=== PATIENT | female | born 1990 | race Hispanic/Latino ===

== ENCOUNTER 2022-06-05 09:07 | Day surgery (SDC) | payer MEDICAID, OTHER ==
[2022-06-05 09:35] VITALS: BMI 37.2
[2022-06-05] MEDS ORDERED: hydrALAZINE 20 MG/ML VIAL SLOW IVP PRN (09:57)
[2022-06-05] MEDS ORDERED: Lactated Ringer's 1,000 ML IV SCH (10:00)
[2022-06-05] MEDS ORDERED: Ondansetron PF 4 MG/2 ML Vial IVP SCH (10:00)
== END 2022-06-05 11:05 | disposition home or self-care (01) ==
LOC: CSHLD/OP 09:07
PROVIDERS: ATTEND Obstetrics & Gynecology
DX: O47.1 False labor at or after 37 completed weeks of gestation (principal); O24.419 Gestational diabetes mellitus in pregnancy, unspecified control; O21.2 Late vomiting of pregnancy; Z88.0 Allergy status to penicillin; Z3A.37 37 weeks gestation of pregnancy
CPT/HCPCS: 36416; 96360; 96375; 99283; J2405

== ENCOUNTER 2022-06-05 14:31 | Inpatient (IN) | payer MEDICAID, OTHER ==
[2022-06-05] MEDS ORDERED: Butorphanol Tartrate 1 MG/ML VIAL SLOW IVP PRN (14:42)
[2022-06-05] MEDS ORDERED: Docusate 100 MG CAP PO PRN (14:42)
[2022-06-05] MEDS ORDERED: Acetaminophen 500 MG TAB PO PRN (14:42)
[2022-06-05] MEDS ORDERED: hydrALAZINE 20 MG/ML VIAL SLOW IVP PRN (14:42)
[2022-06-05] MEDS ORDERED: Lidocaine 1% (PF) 30 ML VIAL SC PRN (14:42)
[2022-06-05] MEDS ORDERED: Ibuprofen 800 MG TAB PO PRN (14:42)
[2022-06-05] MEDS ORDERED: Diphenoxylate HCl/Atropine Tablet PO PRN ×2 (14:42)
[2022-06-05] MEDS ORDERED: Promethazine HCl 25 MG/ML VIAL IM PRN (14:42)
[2022-06-05] MEDS ORDERED: HYDROcodone/Acetaminophen 5/325 mg Tablet PO PRN ×2 (14:42)
[2022-06-05] MEDS ORDERED: Ondansetron PF 4 MG/2 ML Vial IVP PRN (14:42)
[2022-06-05] MEDS ORDERED: Zolpidem Tartrate 5 MG TAB PO PRN (14:42)
[2022-06-05] MEDS ORDERED: Misoprostol 200 MCG TAB PR PRN (14:42)
[2022-06-05] MEDS ORDERED: NS w/ Oxytocin 30 units 500 ML IV SCH (14:45)
[2022-06-05] MEDS ORDERED: Lactated Ringer's 1,000 ML IV SCH (14:45)
[2022-06-05 16:13] VITALS: BMI 38.2
[2022-06-05 17:06] LABS: Hemoglobin 9.4 g/dL (12.0-15.5); Mean Corpuscular HGB CONC 29.7 g/dL (32.0-36.0); Mean Corpuscular Hemoglobin 20.6 pg (27.0-33.0); Mean Corpuscular Volume 69.1 fl (81.6-98.3); Mean Platelet Volume 10.6 fl (7.4-10.4); Platelet Count 322 10x3/uL (150-450); RBC Distribution Width 22.7 % (11.5-14.5); Red Blood Cell (RBC) Count 4.57 10x6/uL (3.90-5.03); White Blood Cell (WBC) Count 10.8 10x3/uL (3.5-10.5)
[2022-06-05 17:36] LABS: Syphilis Antibody Nonreactive (Nonreactive); Syphilis Antibody Index 0.05 S/CO (<1.00 Non-Reactive)
[2022-06-05 17:38] LABS: HBSAg Index 0.15 S/CO (0-0.99); HIV (1/2) Antibody/Antigen Non-Reactive (NonReactive); HIV 1/2 INDEX 0.05 S/CO (<1.00); Hep B Surf Ag Non-Reactive S/CO (NonReactive)
[2022-06-05 17:43] LABS: SARS-CoV-2 NAA Rapid Test Not Detected (NotDetected)
[2022-06-06] MEDS ORDERED: Fentanyl 2 mcg/Bup 0.1% Cadd 100 ML ONE (04:01)
[2022-06-06] MEDS ORDERED: Moisturizing Cream (Eucerin) 113 GM JAR TOP PRN (04:57)
[2022-06-06] MEDS ORDERED: Promethazine HCl 25 MG/ML VIAL IM PRN (04:57)
[2022-06-06] MEDS ORDERED: Lactated Ringer's 500 ML IV PRN (04:57)
[2022-06-06] MEDS ORDERED: Acetaminophen 325 MG TAB PO PRN (04:57)
[2022-06-06] MEDS ORDERED: diphenhydrAMINE 50 MG/ML VIAL IVP PRN (04:57)
[2022-06-06] MEDS ORDERED: ePHEDrine Sulfate 50 MG/10 ML VIAL SLOW IVP PRN (04:57)
[2022-06-06] MEDS ORDERED: Naloxone HCl 0.4 mg/ml Vial IVP PRN ×2 (04:57)
[2022-06-06] MEDS ORDERED: Ondansetron PF 4 MG/2 ML Vial IVP PRN ×2 (04:57→15:22)
[2022-06-06] MEDS ORDERED: Communication Order-Pharmacy FS SCH (05:00)
[2022-06-06] MEDS: Fentanyl 2 mcg/Bupivacaine 0.1% Cassette 100 ML EPIDURAL SCH ×2 (11:02→14:55)
[2022-06-06] MEDS ORDERED: Methylergonovine 0.2 MG/ML VIAL ONE (12:59)
[2022-06-06] MEDS ORDERED: Carboprost 250 MCG/ML AMP ONE (13:00)
[2022-06-06] MEDS ORDERED: Lidocaine 2% PF 5 ML VIAL ONE (14:00)
[2022-06-06] MEDS ORDERED: Bupivacaine PF 0.5% 30 ML VIAL ONE (14:00)
[2022-06-06] MEDS ORDERED: Bupivacaine HCl 0.5%/Epinephrine 1:200,000/PF 30 ml Vial ONE (14:00)
[2022-06-06] MEDS ORDERED: ePHEDrine Sulfate 50 MG/10 ML VIAL ONE (14:00)
[2022-06-06] MEDS ORDERED: Preparation H Ointment 28 GM TUBE PR PRN (15:22)
[2022-06-06] MEDS ORDERED: Benzocaine-Menthol 82.5 ML CAN TOP PRN (15:22)
[2022-06-06] MEDS ORDERED: Misoprostol 200 MCG TAB VAG PRN (15:22)
[2022-06-06] MEDS ORDERED: Boostrix 0.5 ML (Tdap) VIAL (>/=7 yrs of age) IM ONE (15:22)
[2022-06-06] MEDS ORDERED: Lanolin Ointment 7 GM TUBE TOP PRN (15:22)
[2022-06-06] MEDS ORDERED: diphenhydrAMINE 25 MG CAP PO PRN (15:22)
[2022-06-06] MEDS ORDERED: Bisacodyl 10 MG SUPP PR PRN (15:22)
[2022-06-06] MEDS ORDERED: Milk Of Magnesia 30 ML UDCUP PO PRN (15:22)
[2022-06-06] MEDS ORDERED: hydrALAZINE 20 MG/ML VIAL SLOW IVP PRN (15:22)
[2022-06-06] MEDS ORDERED: NS w/ Oxytocin 30 units 500 ML IV SCH (15:30)
[2022-06-06] MEDS ORDERED: HYDROcodone/Acetaminophen 5/325 mg Tablet PO PRN (19:02)
[2022-06-06] MEDS ORDERED: Zolpidem Tartrate 5 MG TAB PO PRN (19:03)
[2022-06-06] MEDS: Docusate 100 MG CAP PO SCH (19:46)
[2022-06-06] MEDS: HYDROcodone/Acetaminophen 5/325 mg Tablet PO PRN (19:53)
[2022-06-06] MEDS: Ferrous Sulfate 325 MG TAB PO SCH (19:54)
[2022-06-06] MEDS ORDERED: Ibuprofen 800 MG TAB PO SCH (22:00)
[2022-06-07] MEDS: Ibuprofen 800 MG TAB PO SCH ×4 (01:41→22:21)
[2022-06-07] MEDS: HYDROcodone/Acetaminophen 5/325 mg Tablet PO PRN ×3 (04:47→14:36)
[2022-06-07 05:36] LABS: Mean Corpuscular HGB CONC 29.2 g/dL (32.0-36.0); Mean Corpuscular Hemoglobin 20.7 pg (27.0-33.0); Mean Platelet Volume 10.6 fl (7.4-10.4); Platelet Count 255 10x3/uL (150-450); RBC Distribution Width 23.4 % (11.5-14.5); Red Blood Cell (RBC) Count 3.86 10x6/uL (3.90-5.03); White Blood Cell (WBC) Count 13.1 10x3/uL (3.5-10.5)
[2022-06-07] MEDS: Prenatal Vitamin 1 TAB PO SCH (09:43)
[2022-06-07] MEDS: Ferrous Sulfate 325 MG TAB PO SCH ×2 (09:43→16:51)
[2022-06-07] MEDS: Docusate 100 MG CAP PO SCH ×2 (09:43→22:21)
[2022-06-07] MEDS ORDERED: Butorphanol Tartrate 1 MG/ML VIAL SLOW IVP SCH (22:15)
[2022-06-08] MEDS: Ibuprofen 800 MG TAB PO SCH ×2 (05:37→13:01)
[2022-06-08] MEDS: Docusate 100 MG CAP PO SCH (09:07)
[2022-06-08] MEDS: Ferrous Sulfate 325 MG TAB PO SCH (09:07)
[2022-06-08] MEDS: Prenatal Vitamin 1 TAB PO SCH (09:07)
[2022-06-08] MEDS: HYDROcodone/Acetaminophen 5/325 mg Tablet PO PRN ×2 (09:07→13:01)
[2022-06-08 12:35] VITALS: BP 109/58; TEMP 98.2
== END 2022-06-08 14:50 | disposition home or self-care (01) | DRG 806 ==
LOC: CSHLD/OP 14:31 → CSHLD 14:33 → CSHPP 06-06 18:08
PROVIDERS: ADMIT Obstetrics & Gynecology; ATTEND Obstetrics & Gynecology
PROC: 10E0XZZ Delivery of Products of Conception, External Approach (ICD-10-PCS; principal; 2022-06-06)
PROC: 10907ZC Drainage of Amniotic Fluid, Therapeutic from Products of Conception, Via Natural or Artificial Opening (ICD-10-PCS; 2022-06-06)
DX: O36.8130 Decreased fetal movements, third trimester, not applicable or unspecified (principal); O99.354 Diseases of the nervous system complicating childbirth; Z37.0 Single live birth; Z3A.37 37 weeks gestation of pregnancy; Z20.822 Contact with and (suspected) exposure to COVID-19; Z88.0 Allergy status to penicillin; Z88.5 Allergy status to narcotic agent; Z86.16 Personal history of COVID-19; O99.02 Anemia complicating childbirth; D64.9 Anemia, unspecified; G43.909 Migraine, unspecified, not intractable, without status migrainosus; F41.9 Anxiety disorder, unspecified; F32.A Depression, unspecified; Z90.49 Acquired absence of other specified parts of digestive tract; Z79.84 Long term (current) use of oral hypoglycemic drugs; Z79.899 Other long term (current) drug therapy; O99.344 Other mental disorders complicating childbirth
CPT/HCPCS: 36415; 51702; 85027; 86780; 86850; 86900; 86901; 87340; 87389; J0595; J2001; J2405; J2590; J3010; S0020; U0002

== ENCOUNTER 2022-06-12 22:05 | Emergency (ER) | payer MEDICAID ==
[2022-06-12] MEDS ORDERED: Acetaminophen 500 MG TAB ONE (22:24)
[2022-06-12 22:48] LABS: Bilirubin Neg (Negative); Blood, Urine 250 (Negative); Clarity Clear (Clear); Glucose, Urine (Dipstick) Normal (Negative); Ketone, Urine Negative (Negative); Leukocyte 500 (Negative); Nitrite Negative (Negative); Protein, Urine (Dipstick) Negative (Neg-Trace); Urobilinogen Normal mg/dL (Less than 2)
[2022-06-12 22:52] LABS: Bacteria/HPF 1+ HPF (None Seen); Mucous/LPF Few LPF (<2+)
[2022-06-12] MEDS ORDERED: diphenhydrAMINE 50 MG/ML VIAL ONE (23:38)
[2022-06-12 23:39] LABS: #Eosinphils 0.1 10x3/uL (0.0-0.5); #Monocytes 0.5 10x3/uL (0.0-1.1); #Neutrophils 8.9 10x3/uL (1.5-8.4); %Basophils 0.4 % (0.0-2.0); %Lymphocytes 13.6 % (18.0-47.0); %Monocytes 4.2 % (0.0-10.0); %Neutrophils 79.3 % (40.0-75.0); Hemoglobin 8.9 g/dL (12.0-15.5); Mean Corpuscular HGB CONC 30.4 g/dL (32.0-36.0); Mean Corpuscular Volume 72.3 fl (81.6-98.3); Mean Platelet Volume 9.9 fl (7.4-10.4); Platelet Count 433 10x3/uL (150-450); RBC Distribution Width 24.7 % (11.5-14.5); Red Blood Cell (RBC) Count 4.05 10x6/uL (3.90-5.03); White Blood Cell (WBC) Count 11.2 10x3/uL (3.5-10.5)
[2022-06-12] MEDS ORDERED: Metoclopramide HCl 10 MG/2 ML VIAL ONE (23:39)
[2022-06-12] MEDS ORDERED: Phenazopyridine HCl 95 MG TAB PO SCH (23:45)
[2022-06-12 23:53] LABS: ALT (SGPT) 112 U/L (8-55); AST (SGOT) 130 U/L (5-34); Albumin 3.3 g/dL (3.5-5.0); Alkaline Phosphatase 163 U/L (40-110); Anion Gap 16 mmol/L (10-20); BUN (Urea Nitrogen) 14 mg/dL (7.0-18.7); Bilirubin, Total 0.3 mg/dL (0.2-1.2); Calc. Creatinine Clearance 0 mL/min (70-130); Calcium 8.8 mg/dL (7.8-10.44); Carbon Dioxide 20 mmol/L (22-29); Chloride 105 mmol/L (98-107); Estimated GFR 121; Globulin 3.7 g/dL (2.4-3.5); Glucose 106 mg/dL (70-105); Potassium 3.8 mmol/L (3.5-5.1); Sodium 137 mmol/L (136-145)
[2022-06-13 00:20] LABS: Anisocytosis SLIGHT = 6-15 cells (100X) (0-5/hpf); Hypochromia SLIGHT = 6-15 cells (100X) (0-5/hpf); Microcytosis SLIGHT = 6-15 cells (100X) (0-5/hpf); Platelet Morphology Comment Appears Adequate
== END 2022-06-13 00:39 | disposition home or self-care (01) ==
LOC: CSHERS 22:05
DX: R51.9 Headache, unspecified (principal); N39.0 Urinary tract infection, site not specified
CPT/HCPCS: 36415; 76856; 80053; 81003; 81015; 83605; 85025; 87040; 87086; 93005; 96365; 96375; J1200; J2765